=== PATIENT | male | born 1965 | race Caucasian/White ===

== ENCOUNTER 2023-03-21 09:30 | Inpatient (IN) | payer MEDICAID ==
[~2023-03-21] VITALS: Ht 188 cm; Wt 64.4 kg
[2023-03-21 10:14] LABS: BASOPHILS % (AUTO) 0.8 % (0.0-2.0); EOSINOPHILS % (AUTO) 1.5 % (1.0-6.0); HEMATOCRIT 41.4 % (41-53); LYMPHOCYTES # (AUTO) 0.9 K/uL (1.0-4.8); LYMPHOCYTES % (AUTO) 8.3 % (22.0-44.0); MEAN CORPUSCULAR HEMOGLOBIN 30.3 pg (26.0-34.0); MEAN CORPUSCULAR HGB CONC 33.9 G/dL (31.0-37.0); MEAN CORPUSCULAR VOLUME 90 fL (80-100); MONOCYTES # (AUTO) 0.8 K/uL (0.1-1.0); MONOCYTES % (AUTO) 7.1 % (2.0-9.0); NEUTROPHILS # (AUTO) 9.4 K/uL (1.8-7.7); NEUTROPHILS % (AUTO) 82.3 % (40.0-70.0); PLATELET COUNT (AUTO) 629 K/uL (150-450); RED BLOOD CELL COUNT(AUTO) 4.63 MIL/uL (4.50-5.90); RED CELL DISTRIBUTION WIDTH 12.7 % (11.5-14.5); WHITE BLOOD COUNT (AUTO) 11.4 K/uL (4.5-11.0)
[2023-03-21 10:49] LABS: ANION GAP 6 mmol/L (8-16); CALCIUM, TOTAL 9.5 mg/dL (8.8-10.5); CARBON DIOXIDE 30 mmol/L (22-29); CHLORIDE 97 mmol/L (98-107); GLOMERULAR FILTR. RATE CALC > 60 mL/min (>60); GLUCOSE,RANDOM 82 mg/dL (70-110); POTASSIUM 3.9 mmol/L (3.5-5.1); SODIUM SERUM 133 mmol/L (136-145); UREA NITROGEN, BLOOD 13 mg/dL (7-18)
[2023-03-21 10:56] LABS: ALANINE AMINOTRANSFERASE 20 U/L (12-78); ALBUMIN 3.2 g/dL (3.4-5.0); ALKALINE PHOSPHATASE 110 U/L (46-116); ASPARTATE AMINOTRANSFERASE 20 U/L (15-37); BILIRUBIN,TOTAL 0.5 mg/dL (0.1-1.0); LIPASE 30 U/L (16-77); TOTAL PROTEIN, SERUM 8.1 g/dL (6.4-8.2)
[2023-03-21] MEDS ORDERED: SODIUM CHLORIDE 0.9% 1,000 ML IV ONE (11:30)
[2023-03-21] MEDS ORDERED: IOHEXOL 350 MG/ML 100 ML VIAL ONE (11:51)
[2023-03-21 11:52] LABS: TROPONIN I-HIGH SENSITIVITY 7 ng/L (<76)
[2023-03-21] MEDS ORDERED: SODIUM CHLORIDE 0.9% 100 ML ONE (11:52)
[2023-03-21 12:55] LABS: APPEARANCE,URINE CLEAR (CLEAR); BILIRUBIN,URINE NEGATIVE (NEGATIVE); COLOR,URINE LIGHT YELLOW (YELLOW); GLUCOSE, URINE (UA) NEGATIVE (NEGATIVE); KETONES,URINE NEGATIVE (NEGATIVE); LEUKOCYTE ESTERASE ,URINE NEGATIVE (NEGATIVE); NITRATE,URINE NEGATIVE (NEGATIVE); OCCULT BLOOD,URINE NEGATIVE (NEGATIVE); PH,URINE 6.5 (5.0-8.0); PROTEIN,URINE NEGATIVE (NEGATIVE); SPECIFIC GRAVITIY, URINE 1.014 (1.003-1.030); UROBILINOGEN,URINE <=1.0 mg/dL (<=1.0)
[2023-03-21] MEDS ORDERED: MetroNIDAZOLE 500 MG/NACL 100 ML IV ONE (14:15)
[2023-03-21] MEDS ORDERED: CefTRIAXone 1 GM/DEXTROSE 50 ML IV ONE (14:15)
[2023-03-21] MEDS ORDERED: ONDANSETRON HCL 4 MG/2 ML VIAL IVP PRN (15:15)
[2023-03-21] MEDS ORDERED: ACETAMINOPHEN 325 MG TABLET PO PRN (15:15)
[2023-03-21] MEDS ORDERED: 0.9% SODIUM CHLORIDE 10 ML SYRINGE IVP PRN (15:15)
[2023-03-21] MEDS: PANTOPRAZOLE SODIUM 40 MG/VIAL IVP SCH (15:29)
[2023-03-21] MEDS: SODIUM CHLORIDE 0.9% 1,000 ML IV SCH (15:29)
[2023-03-21] MEDS: HEPARIN SODIUM,PORCINE 5,000 UNITS/ML VIAL SQ SCH ×2 (15:53→23:36)
[2023-03-21] MEDS: MORPHINE SULFATE 2 MG/ML SYRINGE IVP PRN ×2 (16:23→21:08)
[2023-03-21 17:47] LABS: COVID AG,FIA SOURCE NASAL SWAB
[2023-03-21 18:00] VITALS: BP 154/80; PULSE 83; RESP 18; TEMP 98
[2023-03-21 18:02] LABS: SARS-COV2 (COVID) ANTIGEN,FIA Negative (Negative)
[2023-03-21 18:33] VITALS: BP 154/80; PULSE 83; RESP 18; TEMP 98; O2SAT 100
[2023-03-21 20:49] VITALS: BP 156/80; PULSE 77; RESP 18; TEMP 98.5
[2023-03-21] MEDS: MetroNIDAZOLE 500 MG/NACL 100 ML IV SCH (22:41)
[2023-03-21 23:20] VITALS: BP 144/77; PULSE 82; RESP 18; TEMP 98.3
[2023-03-22] MEDS: MORPHINE SULFATE 2 MG/ML SYRINGE IVP PRN ×5 (02:39→18:58)
[2023-03-22 04:20] VITALS: BP 158/89; PULSE 83; RESP 18; TEMP 98.4
[2023-03-22] MEDS: SODIUM CHLORIDE 0.9% 1,000 ML IV SCH ×2 (04:42→19:54)
[2023-03-22] MEDS: MetroNIDAZOLE 500 MG/NACL 100 ML IV SCH ×3 (06:22→22:52)
[2023-03-22 06:52] LABS: BASOPHILS % (AUTO) 1.1 % (0.0-2.0); EOSINOPHILS % (AUTO) 1.7 % (1.0-6.0); HEMATOCRIT 38.5 % (41-53); HEMOGLOBIN 12.7 g/dL (13.5-17.5); LYMPHOCYTES # (AUTO) 1.1 K/uL (1.0-4.8); MEAN CORPUSCULAR HGB CONC 33.1 G/dL (31.0-37.0); MEAN CORPUSCULAR VOLUME 91 fL (80-100); MONOCYTES % (AUTO) 9.5 % (2.0-9.0); NEUTROPHILS # (AUTO) 7.9 K/uL (1.8-7.7); NEUTROPHILS % (AUTO) 76.7 % (40.0-70.0); PLATELET COUNT (AUTO) 538 K/uL (150-450); RED BLOOD CELL COUNT(AUTO) 4.25 MIL/uL (4.50-5.90); RED CELL DISTRIBUTION WIDTH 12.9 % (11.5-14.5); WHITE BLOOD COUNT (AUTO) 10.3 K/uL (4.5-11.0)
[2023-03-22 07:17] LABS: ALANINE AMINOTRANSFERASE 19 U/L (12-78); ALBUMIN 2.6 g/dL (3.4-5.0); ALKALINE PHOSPHATASE 92 U/L (46-116); ANION GAP 8 mmol/L (8-16); ASPARTATE AMINOTRANSFERASE 16 U/L (15-37); BILIRUBIN,TOTAL 0.3 mg/dL (0.1-1.0); CALCIUM, TOTAL 8.7 mg/dL (8.8-10.5); CARBON DIOXIDE 29 mmol/L (22-29); CHLORIDE 101 mmol/L (98-107); CREATININE 0.87 mg/dL (0.60-1.30); GLOMERULAR FILTR. RATE CALC > 60 mL/min (>60); GLUCOSE,RANDOM 81 mg/dL (70-110); POTASSIUM 4.2 mmol/L (3.5-5.1); SODIUM SERUM 138 mmol/L (136-145); TOTAL PROTEIN, SERUM 6.9 g/dL (6.4-8.2); UREA NITROGEN, BLOOD 11 mg/dL (7-18)
[2023-03-22] MEDS: PANTOPRAZOLE SODIUM 40 MG/VIAL IVP SCH (08:05)
[2023-03-22] MEDS: HEPARIN SODIUM,PORCINE 5,000 UNITS/ML VIAL SQ SCH ×3 (08:05→23:31)
[2023-03-22 08:09] VITALS: BP 139/83; PULSE 84; RESP 20; TEMP 98.5
[2023-03-22 11:08] VITALS: BP 148/81; PULSE 78; RESP 18; TEMP 98.9
[2023-03-22] MEDS: CefTRIAXone 1 GM/DEXTROSE 50 ML IV SCH (14:36)
[2023-03-22 15:27] VITALS: BP 173/105; PULSE 89; RESP 18; TEMP 99.3
[2023-03-23 00:27] VITALS: BP 146/85; PULSE 100; RESP 18; TEMP 99.4
[2023-03-23 04:39] VITALS: BP 151/99; PULSE 95; RESP 18; TEMP 98.4
[2023-03-23] MEDS: MetroNIDAZOLE 500 MG/NACL 100 ML IV SCH ×3 (06:11→22:55)
[2023-03-23 08:30] VITALS: BP 141/86; PULSE 95; RESP 20; TEMP 98.9
[2023-03-23] MEDS: PANTOPRAZOLE SODIUM 40 MG/VIAL IVP SCH (08:39)
[2023-03-23] MEDS: HEPARIN SODIUM,PORCINE 5,000 UNITS/ML VIAL SQ SCH ×3 (08:39→22:56)
[2023-03-23 11:30] VITALS: BP 123/73; PULSE 95; RESP 20; TEMP 98.6
[2023-03-23] MEDS: CefTRIAXone 1 GM/DEXTROSE 50 ML IV SCH (13:06)
[2023-03-23] MEDS ORDERED: SODIUM CHLORIDE 0.9% 500 ML IV ONE (14:55)
[2023-03-23 15:03] VITALS: BP 130/80; PULSE 90; RESP 20; TEMP 98.6
[2023-03-23 19:48] VITALS: BP 126/81; PULSE 97; RESP 20; TEMP 98.5
[2023-03-24 03:46] VITALS: BP 133/75; PULSE 91; RESP 20; TEMP 98.7
[2023-03-24 08:00] VITALS: BP 126/82; PULSE 86; RESP 20; TEMP 98.6
[2023-03-24] MEDS: MetroNIDAZOLE 500 MG/NACL 100 ML IV SCH (09:53)
[2023-03-24] MEDS: HEPARIN SODIUM,PORCINE 5,000 UNITS/ML VIAL SQ SCH (09:54)
[2023-03-24] MEDS: PANTOPRAZOLE SODIUM 40 MG/VIAL IVP SCH (09:54)
[2023-03-24] MEDS ORDERED: AMOX1TAB15 PO (12:06)
== END 2023-03-24 14:17 | disposition home or self-care (01) | DRG 244 ==
LOC: EMS 09:31 → 5S 15:11 → AHU 16:36 → 5S 18:22 → 6N 03-23 13:58
PROVIDERS: ADMIT Internal Medicine; ATTEND Internal Medicine
DX: K57.20 Diverticulitis of large intestine with perforation and abscess without bleeding (principal); K56.609 Unspecified intestinal obstruction, unspecified as to partial versus complete obstruction; E87.1 Hypo-osmolality and hyponatremia; E86.1 Hypovolemia; D75.838 Other thrombocytosis; Z20.822 Contact with and (suspected) exposure to COVID-19; F14.90 Cocaine use, unspecified, uncomplicated; F10.90 Alcohol use, unspecified, uncomplicated; J43.9 Emphysema, unspecified; Z85.51 Personal history of malignant neoplasm of bladder
CPT/HCPCS: 74018; 74177; 80053; 81003; 83690; 84484; 85025; 87040; 93005; 99285; C9113; J0696; J1644; J2270; J3490; J7030; J7040; J7050; Q9967; 36415-L1; 36415-TC